=== PATIENT | male | born 1970 | race Caucasian/White ===

== ENCOUNTER → 2019-05-24 07:39 | Outpatient (CLI) | payer OTHER, MEDICAID, SELFPAY ==
--- NOTE | 2019-05-24 | DI.ECHO.S_ITS ---
[facility]---------+ [facility] +---------+ : : [address] : : : : [id number] : : : : Phone: [phone]---------+ Echocardiogram Report + + :Name: CATHY YATES Study Date: 05/24/2019 Height: 68 in : :[facility] Weight: 250 lb : : Gender: Male BSA: 2.2 m2 : :: 1970 Age: 48 yrs BP: 132/92 mmHg: :Reason For Study: Aortic valve replacement - bioprosthetic : :Ordering Physician: Siva : :Barak Performed By: Rm Taylor : :Referring: SIVA MIGUEL : + + Interpretation Summary Left ventricular systolic function is normal without focal wall motion abnormalities with the ejection fraction visually estimated to be 60-65% and appears unchanged compared to the previous study. Diastolic parameters suggest probable normal left ventricular diastolic function and normal filling pressures. The right ventricle is mildly dilated but systolic function is normal and appears slightly larger compared to the previous study. Pulmonary artery pressures cannot be estimated because of the lack of a measurable TR jet velocity but the IVC suggests a CVP of around 8 mmHg. The left atrial size is normal while the right atrium is mildly dilated. The left atrium has mildly increased in size since the prior echo exam. The mitral valve leaflets appear moderately thickened and mildly calcified, extending into the subvalvular apparatus, with some of this thickening appearing to slightly prolapse behind the annular plane. Since the previous study, there has been no change in the appearance of the mitral valve. There is moderate mitral regurgitation that is unchanged compared to the previous study. There is a bioprosthetic aortic valve that is not well visualized but appears to be well-seated with gradients through the prosthetic aortic valve that are within the normal range for this type of valve and are unchanged compared to the previous study. There is no other significant valvular heart disease. Procedure: A two-dimensional transthoracic echocardiogram with color flow and Doppler was performed. The study quality was technically adequate. Prior echo performed on 06/19/16. The patient was in normal sinus rhythm during the exam. Left Ventricle: The left ventricle is normal in size and wall thickness. Left ventricular systolic function is normal without focal wall motion abnormalities. The ejection fraction is estimated to be 60-65%. This is unchanged compared to the previous study. Diastolic parameters suggest probable normal left ventricular diastolic function and normal filling pressures. Right Ventricle: The right ventricle is mildly dilated. The right ventricular systolic function is normal. This is slightly larger compared to the previous study. Atria: The left atrial size is normal. The left atrium has mildly increased in size since the prior echo exam. The right atrium is mildly dilated. The interatrial septum is intact with no evidence for an atrial septal defect. Mitral Valve: The mitral valve leaflets appear moderately thickened and mildly calcified with mild calcification extending into the subvalvular apparatus. The anterior mitral leaflet has moderate calcific thickening with some of this thickening appearing to slightly prolapse behind the annular plane. Since the previous study, there has been no change in the appearance of the mitral valve. There is moderate mitral regurgitation. This is unchanged compared to the previous study. Aortic Valve: There is a bioprosthetic aortic valve. The prosthetic aortic valve is not well visualized. The prosthetic aortic valve is well-seated. The gradients through the prosthetic aortic valve are within the normal range for this type of valve. This is unchanged compared to the previous study. The aortic valve mean gradient is 7 mmHg. No aortic regurgitation is present. Tricuspid Valve: The tricuspid valve is normal in structure and function. There is trace tricuspid regurgitation. Pulmonary artery pressures cannot be estimated because of the lack of a measurable TR jet velocity but the IVC suggests a CVP of around 8 mmHg. Pulmonic Valve: The pulmonic valve is not well visualized. There is trace pulmonic regurgitation. There is no other significant valvular heart disease. Great Vessels: The aortic root is normal size. The ascending aorta could not be visualized. The pulmonary artery is normal size. The IVC is of normal diameter and collapses less than 50% with a sniff. This suggests a right atrial pressure of 8 mm Hg. Pericardium/ Pleura There is no pericardial effusion. There is no pleural effusion. MMode/2D Measurements & Calculations LVIDd: 3.9 cm LVOT diam: 2.1 cm LVIDs: 2.6 cm Ao root diam: 3.8 cm FS: 32.4 % EPSS: 0.84 cm IVSd: 0.98 cm LVPWd: 0.99 cm LV thorpe. diameter/BSA (cm/m^2): 1.7 LV sys. diameter/BSA (cm/m^2): 1.2 LA A2 area: 22.0 cm2 RA long axis: 5.9 cm LA A4 area: 18.8 cm2 RA area: 21.8 cm2 LA length (vol): 5.5 cm RA vol: 68.8 ml LA vol: 63.6 ml RA : 30.6 ml/m2 LA vol index: 28.3 ml/m2 TAPSE: 1.9 cm Doppler Measurements & Calculations Ao V2 max: 172.3 cm/sec LVOT Max Lencho: 89.4 cm/sec Ao V2 mean: 124.8 cm/sec LV V1 max P.2 mmHg Ao max P.9 mmHg LV V1 VTI: 21.9 cm Ao mean P.8 mmHg TAI(I,D): 2.0 cm2 Ao V2 VTI: 38.1 cm TAI(V,D): 1.8 cm2 sev ratio: 0.57 TAI indexed to BSA (cm^2/m^2): 0.91 MV E max lencho: 103.6 cm/sec PA V2 max: 74.3 cm/sec MV A max lencho: 69.0 cm/sec PA V2 mean: 53.5 cm/sec MV E/A: 1.5 PA mean P.3 mmHg Med Peak E' Lencho: 9.6 cm/sec PA Accel Time: 0.17 sec E/E' med: 10.8 Lat Peak E' Lencho: 16.5 cm/sec E/E' lat: 6.3 E/e' average: 8.5 MV dec time: 0.24 sec SV(LVOT): 77.4 ml Reading Physician:PM
[2019-05-24 09:45] LABS: Alanine Aminotransferase 17 IU/L (<50); Albumin 4.1 g/dL (3.5-5.0); Albumin Globulin Ratio 1.2 (1.0-2.8); Alkaline Phosphatase 169 U/L (38-126); Aspartate Aminotransferase 27 IU/L (17-59); Bilirubin Total 0.6 mg/dL (0.2-1.3); Blood Urea Nitrogen 20 mg/dL (9-20); Calcium 9.6 mg/dL (8.4-10.2); Carbon Dioxide 25 mmol/L (22-32); Chloride 98 mmol/L (98-107); Cholesterol 113 mg/dL (140-199); Estimated Glomerular Filt Rate > 60.0 mL/min (>60); Globulin 3.3 g/dL (1.7-4.1); Glucose 76 mg/dL (70-100); HDL Cholesterol 35 mg/dL (40-60); HEMOLYSIS 34 (0-50); LDL Cholesterol Calculated 61 mg/dL (<100); Potassium 4.7 mmol/L (3.4-5.1); Sodium 134 mmol/L (137-145); Total Protein 7.4 g/dL (6.3-8.2); Triglycerides 84 mg/dL (35-150)
== END ==
PROVIDERS: PCP Family Medicine; Visit Provider Specialist
DX: I34.0 Nonrheumatic mitral (valve) insufficiency (principal); E66.9 Obesity, unspecified; Z95.2 Presence of prosthetic heart valve; Z86.79 Personal history of other diseases of the circulatory system
CPT/HCPCS: 36415; 80053; 80061; 93306

== ENCOUNTER → 2020-09-19 07:03 | Outpatient (CLI) | payer OTHER, MEDICAID, SELFPAY ==
[2020-09-19 08:33] LABS: Alanine Aminotransferase 19 IU/L (<50); Albumin 4.4 g/dL (3.5-5.0); Albumin Globulin Ratio 1.4 (1.0-2.8); Alkaline Phosphatase 134 U/L (38-126); Aspartate Aminotransferase 32 IU/L (17-59); BUN Creatinine Ratio 16.3 (6-22); Bilirubin Total 0.5 mg/dL (0.2-1.3); Blood Urea Nitrogen 13 mg/dL (9-20); Calcium 9.5 mg/dL (8.4-10.2); Carbon Dioxide 25 mmol/L (22-32); Chloride 98 mmol/L (98-107); Estimated Glomerular Filt Rate > 60.0 mL/min (>60); Globulin 3.2 g/dL (1.7-4.1); Glucose 98 mg/dL (70-100); HEMOLYSIS < 15 (0-50); Potassium 4.5 mmol/L (3.4-5.1); Sodium 131 mmol/L (137-145); Total Protein 7.6 g/dL (6.3-8.2)
== END ==
PROVIDERS: PCP Family Medicine; Referring Provider Specialist; Visit Provider Specialist
DX: I49.3 Ventricular premature depolarization (principal)
CPT/HCPCS: 36415; 80053